=== PATIENT | male | born 1960 | race Hispanic/Latino ===

== ENCOUNTER 2018-12-11 17:01 | Inpatient (IN) | payer MEDICAID ==
[2018-12-11] MEDS ORDERED: PROTONIX IV ONE (18:10)
[2018-12-11] MEDS ORDERED: ZOFRAN IV ONE (18:10)
[2018-12-11] MEDS ORDERED: ATIVAN IV ONE ×2 (18:10→19:37)
[2018-12-11 18:12] LABS: Basophils % (Auto) 0.7 % (0.0-1.8); Hematocrit 41.5 % (35.5-45.6); Hemoglobin 14.2 gm/dl (11.8-15.2); Lymphocytes # (Auto) 0.5 K/mm3 (1.2-5.4); Lymphocytes % (Auto) 6.4 % (13.4-35.0); Mean Corpuscular HGB Conc 34 % (32-34); Mean Corpuscular Volume 85 fl (84-94); Monocytes # (Auto) 0.4 K/mm3 (0.0-0.8); Monocytes % (Auto) 5.7 % (0.0-7.3); Platelet Count 138 K/mm3 (140-440); Red Blood Count 4.91 M/mm3 (3.65-5.03); Red Cell Distribution Width 16.6 % (13.2-15.2)
[2018-12-11 18:25] LABS: INR 0.93 (0.87-1.13)
[2018-12-11 18:27] LABS: Partial Thromboplastin Time 25.1 Sec. (24.2-36.6)
--- NOTE | 2018-12-11 18:38 | Emergency Department Report ---
ED General Adult HPI - General Chief complaint: Nausea/Vomiting/Diarrhea Stated complaint: NAUSEA AND VOMITING Time Seen by Provider: 12/11/18 17:29 Source: EMS Mode of arrival: Stretcher Limitations: No Limitations - History of Present Illness Initial comments: This is a 58-year-old male that has moved here from [place]. He states he has a history of alcohol detox and pancreatitis. He states he's been unable to eat and vomiting lately. He admits to being very shaky after cutting down on his alcohol consumption. He states his last drink was last night. He states he's been sweaty but doesn't feel like he's had a fever or chills per se. He h as been weak and had some difficulty with ambulation. -: Gradual, days(s) Location: head (complains of some generalized headache mild to moderate) Quality: aching Consistency: intermittent Improves with: none Worsens with: none Associated Symptoms: denies other symptoms, nausea/vomiting, weakness - Related Data Previous Rx's Medication Instructions Recorded Last Taken Type Cephalexin [Keflex] 500 mg PO BID #28 capsule 10/09/13 Unknown Rx HYDROcodone/APAP 10-325 [[place] 1 each PO Q6HR PRN #14 tablet 10/09/13 Unknown Rx 10-325 mg TAB] Sulfamethoxazole/Trimethoprim 1 each PO BID #28 tablet 10/09/13 Unknown Rx [Bactrim Ds] traMADol [Ultram] 50 mg PO Q4HR PRN #20 tablet 10/09/13 Unknown Rx Allergies Allergy/AdvReac Type Severity Reaction Status Date / Time No Known Allergies Allergy Unverified 10/09/13 12:01 ED Review of Systems ROS: Stated complaint: NAUSEA AND VOMITING Other details as noted in HPI Constitutional: weakness. denies: chills, fever Eyes: denies: eye pain, eye discharge, vision change ENT: denies: ear pain, throat pain Respiratory: denies: cough, shortness of breath, wheezing Cardiovascular: denies: chest pain, palpitations Endocrine: no symptoms reported Gastrointestinal: abdominal pain (occasional epigastric), nausea, vomiting, diarrhea Genitourinary: denies: urgency, dysuria Musculoskeletal: denies: back pain, joint swelling, arthralgia Skin: denies: rash, lesions Neurological: denies: headache, weakness, paresthesias Psychiatric: denies: anxiety, depression Hematological/Lymphatic: denies: easy bleeding, easy bruising ED Past Medical Hx - Past Medical History Previous Medical History?: Yes Hx Hypertension: Yes Hx CVA: Yes Hx Psychiatric Treatment: Yes (bipolar) Additional medical history: hx head injuries, hx mrsa - Surgical History Past Surgical History?: Yes Additional Surgical History: acl surgery - Social History Smoking Status: Never Smoker Substance Use Type: Alcohol, Marijuana - Medications Home Medications: Home Medications Medication Instructions Recorded Confirmed Last Taken Type Cephalexin [Keflex] 500 mg PO BID #28 capsule 10/09/13 Unknown Rx HYDROcodone/APAP 10-325 [[place] 1 each PO Q6HR PRN #14 tablet 10/09/13 Unknown Rx 10-325 mg TAB] Sulfamethoxazole/Trimethoprim 1 each PO BID #28 tablet 10/09/13 Unknown Rx [Bactrim Ds] traMADol [Ultram] 50 mg PO Q4HR PRN #20 tablet 10/09/13 Unknown Rx ED Physical Exam - General Limitations: No Limitations General appearance: alert, in no apparent distress, other (tremulous) - Head Head exam: Present: atraumatic, normocephalic - Eye Eye exam: Present: normal appearance, PERRL, EOMI. Absent: scleral icterus - ENT ENT exam: Present: mucous membranes moist - Neck Neck exam: Present: normal inspection. Absent: tenderness, meningismus - Respiratory Respiratory exam: Present: normal lung sounds bilaterally. Absent: respiratory distress - Cardiovascular Cardiovascular Exam: Present: normal rhythm, tachycardia. Absent: systolic murmur, diastolic murmur, rubs, gallop - GI/Abdominal GI/Abdominal exam: Present: soft, normal bowel sounds. Absent: distended, tenderness, guarding, rebound, rigid - Rectal Rectal exam: Present: deferred - Extremities Exam Extremities exam: Present: normal inspection - Back Exam Back exam: Present: normal inspection - Neurological Exam Neurological exam: Present: alert, oriented X3, CN II-XII intact. Absent: motor sensory deficit - Psychiatric Psychiatric exam: Present: normal affect, normal mood - Skin Skin exam: Present: warm, dry, intact, normal color. Absent: rash ED Course Vital Signs 12/11/18 12/11/18 17:23 17:40 Temperature 97.9 F Pulse Rate 94 H Respiratory 14 Rate Blood Pressure 138/77 Blood Pressure 138/77 [Left] O2 Sat by Pulse 99 99 Oximetry - Reevaluation(s) Reevaluation #1: Presentation seemed consistent with alcohol withdrawal syndrome and possible pancreatitis. Patient was given a banana bag Protonix and Ativan. 12/11/18 18:37 Reevaluation #2: Patient is a bit altered asking for a flu vaccine. He remains tremulous. Lab neglected running the lipase. That is still pending. He will be admitted for alcohol withdrawal with delirium. 12/11/18 19:36 ED Medical Decision Making - Lab Data Result diagrams: 12/11/18 18:02 12/11/18 18:02 Laboratory Results - last 24 hr 12/11/18 12/11/18 18:02 18:02 WBC 7.6 RBC 4.91 Hgb 14.2 Hct 41.5 MCV 85 MCH 29 MCHC 34 RDW 16.6 H Plt Count 138 L Lymph % (Auto) 6.4 L Walsh % (Auto) 5.7 Eos % (Auto) 0.0 Baso % (Auto) 0.7 Lymph # 0.5 L Walsh # 0.4 Eos # 0.0 Baso # 0.0 Seg Neutrophils % 87.2 H Seg Neutrophils # 6.6 PT 12.2 INR 0.93 APTT 25.1 Laboratory Results - last 24 hr 12/11/18 12/11/18 12/11/18 18:02 18:02 18:02 WBC 7.6 RBC 4.91 Hgb 14.2 Hct 41.5 MCV 85 MCH 29 MCHC 34 RDW 16.6 H Plt Count 138 L Lymph % (Auto) 6.4 L Walsh % (Auto) 5.7 Eos % (Auto) 0.0 Baso % (Auto) 0.7 Lymph # 0.5 L Walsh # 0.4 Eos # 0.0 Baso # 0.0 Seg Neutrophils % 87.2 H Seg Neutrophils # 6.6 PT 12.2 INR 0.93 APTT 25.1 Sodium 136 L Potassium 4.1 Chloride 93.6 L Carbon Dioxide 19 L Anion Gap 28 BUN 12 Creatinine 0.7 L Estimated GFR > 60 BUN/Creatinine Ratio 17 Glucose 93 Calcium 8.8 Phosphorus 2.70 Magnesium 1.90 Troponin T 12/11/18 18:02 WBC RBC Hgb Hct MCV MCH MCHC RDW Plt Count Lymph % (Auto) Walsh % (Auto) Eos % (Auto) Baso % (Auto) Lymph # Walsh # Eos # Baso # Seg Neutrophils % Seg Neutrophils # PT INR APTT Sodium Potassium Chloride Carbon Dioxide Anion Gap BUN Creatinine Estimated GFR BUN/Creatinine Ratio Glucose Calcium Phosphorus Magnesium Troponin T < 0.010 Laboratory Results - last 24 hr 12/11/18 12/11/18 12/11/18 18:02 18:02 18:02 WBC 7.6 RBC 4.91 Hgb 14.2 Hct 41.5 MCV 85 MCH 29 MCHC 34 RDW 16.6 H Plt Count 138 L Lymph % (Auto) 6.4 L Walsh % (Auto) 5.7 Eos % (Auto) 0.0 Baso % (Auto) 0.7 Lymph # 0.5 L Walsh # 0.4 Eos # 0.0 Baso # 0.0 Seg Neutrophils % 87.2 H Seg Neutrophils # 6.6 PT 12.2 INR 0.93 APTT 25.1 Sodium 136 L Potassium 4.1 Chloride 93.6 L Carbon Dioxide 19 L Anion Gap 28 BUN 12 Creatinine 0.7 L Estimated GFR > 60 BUN/Creatinine Ratio 17 Glucose 93 Calcium 8.8 Phosphorus 2.70 Magnesium 1.90 Troponin T 12/11/18 18:02 WBC RBC Hgb Hct MCV MCH MCHC RDW Plt Count Lymph % (Auto) Walsh % (Auto) Eos % (Auto) Baso % (Auto) Lymph # Walsh # Eos # Baso # Seg Neutrophils % Seg Neutrophils # PT INR APTT Sodium Potassium Chloride Carbon Dioxide Anion Gap BUN Creatinine Estimated GFR BUN/Creatinine Ratio Glucose Calcium Phosphorus Magnesium Troponin T < 0.010 Laboratory Results - last 24 hr 12/11/18 12/11/18 12/11/18 18:02 18:02 18:02 WBC 7.6 RBC 4.91 Hgb 14.2 Hct 41.5 MCV 85 MCH 29 MCHC 34 RDW 16.6 H Plt Count 138 L Lymph % (Auto) 6.4 L Walsh % (Auto) 5.7 Eos % (Auto) 0.0 Baso % (Auto) 0.7 Lymph # 0.5 L Walsh # 0.4 Eos # 0.0 Baso # 0.0 Seg Neutrophils % 87.2 H Seg Neutrophils # 6.6 PT 12.2 INR 0.93 APTT 25.1 Sodium 136 L Potassium 4.1 Chloride 93.6 L Carbon Dioxide 19 L Anion Gap 28 BUN 12 Creatinine 0.7 L Estimated GFR > 60 BUN/Creatinine Ratio 17 Glucose 93 Calcium 8.8 Phosphorus 2.70 Magnesium 1.90 Troponin T 12/11/18 18:02 WBC RBC Hgb Hct MCV MCH MCHC RDW Plt Count Lymph % (Auto) Walsh % (Auto) Eos % (Auto) Baso % (Auto) Lymph # Walsh # Eos # Baso # Seg Neutrophils % Seg Neutrophils # PT INR APTT Sodium Potassium Chloride Carbon Dioxide Anion Gap BUN Creatinine Estimated GFR BUN/Creatinine Ratio Glucose Calcium Phosphorus Magnesium Troponin T < 0.010 Laboratory Results - last 24 hr 12/11/18 12/11/18 12/11/18 18:02 18:02 18:02 WBC 7.6 RBC 4.91 Hgb 14.2 Hct 41.5 MCV 85 MCH 29 MCHC 34 RDW 16.6 H Plt Count 138 L Lymph % (Auto) 6.4 L Walsh % (Auto) 5.7 Eos % (Auto) 0.0 Baso % (Auto) 0.7 Lymph # 0.5 L Walsh # 0.4 Eos # 0.0 Baso # 0.0 Seg Neutrophils % 87.2 H Seg Neutrophils # 6.6 PT 12.2 INR 0.93 APTT 25.1 Sodium 136 L Potassium 4.1 Chloride 93.6 L Carbon Dioxide 19 L Anion Gap 28 BUN 12 Creatinine 0.7 L Estimated GFR > 60 BUN/Creatinine Ratio 17 Glucose 93 Calcium 8.8 Phosphorus 2.70 Magnesium 1.90 Troponin T 12/11/18 18:02 WBC RBC Hgb Hct MCV MCH MCHC RDW Plt Count Lymph % (Auto) Walsh % (Auto) Eos % (Auto) Baso % (Auto) Lymph # Walsh # Eos # Baso # Seg Neutrophils % Seg Neutrophils # PT INR APTT Sodium Potassium Chloride Carbon Dioxide Anion Gap BUN Creatinine Estimated GFR BUN/Creatinine Ratio Glucose Calcium Phosphorus Magnesium Troponin T < 0.010 Laboratory Results - last 24 hr 12/11/18 12/11/18 12/11/18 18:02 18:02 18:02 WBC 7.6 RBC 4.91 Hgb 14.2 Hct 41.5 MCV 85 MCH 29 MCHC 34 RDW 16.6 H Plt Count 138 L Lymph % (Auto) 6.4 L Walsh % (Auto) 5.7 Eos % (Auto) 0.0 Baso % (Auto) 0.7 Lymph # 0.5 L Walsh # 0.4 Eos # 0.0 Baso # 0.0 Seg Neutrophils % 87.2 H Seg Neutrophils # 6.6 PT 12.2 INR 0.93 APTT 25.1 Sodium 136 L Potassium 4.1 Chloride 93.6 L Carbon Dioxide 19 L Anion Gap 28 BUN 12 Creatinine 0.7 L Estimated GFR > 60 BUN/Creatinine Ratio 17 Glucose 93 Calcium 8.8 Phosphorus 2.70 Magnesium 1.90 Troponin T 12/11/18 18:02 WBC RBC Hgb Hct MCV MCH MCHC RDW Plt Count Lymph % (Auto) Walsh % (Auto) Eos % (Auto) Baso % (Auto) Lymph # Walsh # Eos # Baso # Seg Neutrophils % Seg Neutrophils # PT INR APTT Sodium Potassium Chloride Carbon Dioxide Anion Gap BUN Creatinine Estimated GFR BUN/Creatinine Ratio Glucose Calcium Phosphorus Magnesium Troponin T < 0.010 Laboratory Results - last 24 hr 12/11/18 12/11/18 12/11/18 18:02 18:02 18:02 WBC 7.6 RBC 4.91 Hgb 14.2 Hct 41.5 MCV 85 MCH 29 MCHC 34 RDW 16.6 H Plt Count 138 L Lymph % (Auto) 6.4 L Walsh % (Auto) 5.7 Eos % (Auto) 0.0 Baso % (Auto) 0.7 Lymph # 0.5 L Walsh # 0.4 Eos # 0.0 Baso # 0.0 Seg Neutrophils % 87.2 H Seg Neutrophils # 6.6 PT 12.2 INR 0.93 APTT 25.1 Sodium 136 L Potassium 4.1 Chloride 93.6 L Carbon Dioxide 19 L Anion Gap 28 BUN 12 Creatinine 0.7 L Estimated GFR > 60 BUN/Creatinine Ratio 17 Glucose 93 Calcium 8.8 Phosphorus 2.70 Magnesium 1.90 Troponin T 12/11/18 18:02 WBC RBC Hgb Hct MCV MCH MCHC RDW Plt Count Lymph % (Auto) Walsh % (Auto) Eos % (Auto) Baso % (Auto) Lymph # Walsh # Eos # Baso # Seg Neutrophils % Seg Neutrophils # PT INR APTT Sodium Potassium Chloride Carbon Dioxide Anion Gap BUN Creatinine Estimated GFR BUN/Creatinine Ratio Glucose Calcium Phosphorus Magnesium Troponin T < 0.010 - Radiology Data Radiology results: report reviewed (chest x-ray and CT head no acute process) Critical care attestation.: If time is entered above; I have spent that time in minutes in the direct care of this critically ill patient, excluding procedure time. ED Disposition Clinical Impression: Alcohol withdrawal Qualifiers: Complication of substance-induced condition: with delirium Qualified Code(s): F10.231 - Alcohol dependence with withdrawal delirium Disposition: 09 OP ADMIT IP TO THIS HOSP Is pt being admited?: Yes Does the pt Need Aspirin: Yes Condition: Stable Referrals: PIERRE KNAPP MD [Primary Care Provider] - 3-5 Days Time of Disposition: 19:36
[2018-12-11 18:51] LABS: BUN/Creatinine Ratio 17; Blood Urea Nitrogen 12 mg/dL (9-20); Calcium 8.8 mg/dL (8.4-10.2); Hemolysis Index 15
--- NOTE | 2018-12-11 18:59 | Cat Scan Report ---
CT head without contrast Coronal history: Gait disturbance FINDINGS: No previous exams available for comparison. There appears be mild cerebral white matter dis ease most consistent with microvascular angiopathy. There is also mild cerebral atrophy. The ventricu lar system is correspondingly appropriate in size and configuration. There is no CT evidence of acute intracranial hemorrhage or significant mass effect. There is mild focal opacification along the infe rior maxillary sinuses. All CT scans at this location are performed using the CT dose reduction for A JOSIAH by means of automated exposure control. IMPRESSION: There is mild microvascular angiopathy and cerebral atrophy without CT evidence of acute intracranial hemorrhage. Signer Name: Ricardo Braxton MD Signed: 12/11/2018 6:55 PM Workstation Name: [id number]
[2018-12-11] MEDS ORDERED: VITAMIN B-1 100 MG, FOLVITE 1 MG, INFUVITE 10 ML in NACL 0.9% 1000 ML 1,000 ML IV ONE (19:00)
--- NOTE | 2018-12-11 19:14 | XRay Report ---
CHEST 1 VIEW INDICATION: hypertension. COMPARISON: None. FINDINGS: Support devices: None. Heart: Normal. Lungs/Pleura: No acute pulmonary or pleural findings. There appears to be an accessory azygos fissure in the medial right upper lobe. IMPRESSION: 1. No acute findings. Signer Name: Armen Hernandez MD Signed: 12/11/2018 7:10 PM Workstation Name: [id number]
[2018-12-11] MEDS ORDERED: BABY ASPIRIN PO ONE (19:36)
[2018-12-11 19:44] LABS: Albumin 4.7 g/dL (3.9-5); Bilirubin,Direct 0.3 mg/dL (0-0.2)
[2018-12-11] MEDS ORDERED: ATIVAN IV PRN (20:17)
[2018-12-11] MEDS ORDERED: DILAUDID IV PRN (20:18)
[2018-12-11] MEDS ORDERED: MORPHINE IV PRN (20:18)
[2018-12-11] MEDS ORDERED: SODIUM CHLORIDE FLUSH SYRINGE 10 ML IV PRN (20:18)
[2018-12-11] MEDS ORDERED: TYLENOL PO PRN (20:18)
[2018-12-11] MEDS ORDERED: REGLAN IV PRN (20:18)
[2018-12-11] MEDS ORDERED: ZOFRAN IV PRN (20:18)
[2018-12-11] MEDS ORDERED: APRESOLINE IV PRN (20:22)
[2018-12-11] MEDS: ATIVAN IV PRN (20:46)
[2018-12-11] MEDS ORDERED: ATIVAN ONE (20:50)
--- NOTE | 2018-12-11 21:17 | Cat Scan Report ---
CT ABDOMEN AND PELVIS WITHOUT IV CONTRAST INDICATION: Pancreatitis, elevated lipase. Nausea. COMPARISON: None available. TECHNIQUE: All CT scans at this facility use dose modulation, automated exposure control, iterative reconstructi on or weight based dosing, when appropriate, to reduce radiation dose to as low as reasonably achieva ble. FINDINGS: Lung Bases: No significant abnormality. Skeletal System: No acute abnormality. ABDOMEN: Liver: Diffuse steatosis. Gallbladder: No significant abnormality. Bile Ducts: No significant abnormality. Pancreas: No significant abnormality. Spleen: No significant abnormality. Adrenals: No significant abnormality. Right Kidney: No significant abnormality. Left Kidney: No significant abnormality. Upper GI tract: There is a very small hiatal hernia. Lymph Nodes: No significant adenopathy. Aorta: No significant abnormality. Additional Findings: No significant abnormality. PELVIS: Colon: Normal aside from diverticulosis. Urinary Bladder and Distal Ureters: No significant abnormality. Appendix: No significant abnormality. Lymph Nodes: No significant adenopathy. Additional Findings: Prostate is enlarged. IMPRESSION: 1. Within the limitations of non contrast technique, no acute process in the abdomen or pelvis. 2. Incidental findings, as above. Signer Name: Armen Hernandez MD Signed: 12/11/2018 9:12 PM Workstation Name: [id number]
[2018-12-11] MEDS ORDERED: BABY ASPIRIN ONE (21:26)
[2018-12-11] MEDS: NACL 0.9% 1000 ML 1,000 ML IV SCH (21:59)
[2018-12-11] MEDS: SODIUM CHLORIDE FLUSH SYRINGE 10 ML IV SCH (22:00)
[2018-12-11] MEDS ORDERED: CATAPRES-TTS PATCH TD SCH (22:00)
[2018-12-11] MEDS: LOPRESSOR PO SCH (22:00)
[2018-12-11] MEDS ORDERED: NACL 0.9% 1000 ML 1,000 ML ONE (22:02)
--- NOTE | 2018-12-11 22:41 | History and Physical Report ---
<JOHN CAAL - Last Filed: 12/11/18 22:42> History of Present Illness Date of examination: 12/11/18 Date of admission: 12/11/18 20:18 Chief complaint: Nausea and vomiting History of present illness: 58-year-old male with history of pancreatitis, uncontrolled hypertension and alcohol abuse who presents to [facility] ED with complaints of nausea and vomiting 2 days and diarrhea 2. Patient states that he has nausea and vomiting over the past 2 days after cutting down on his alcohol consumption. He usually drinks 0.5-1 pint 4-6 days a week. He also complains of diarrhea 2 which has since resolved. He admits to feeling shaky, having the "sweats", and generalized weakness for the past 2 days. Patient states he recently relocated from [place] to [place]. He admits to have been gone through alcohol detox program in the past. Denies: fever, headache, hemoptysis, hematemesis, hematochezia, hematuria, head injury/trauma, or recent sick contact Past History Past Medical History: hypertension, stroke, other (bipolar, head injuries, history of MRSA, right axilla abscess 09/2013) Past Surgical History: Other (ACL surgery (1999)) Social history: Lives alone, alcohol abuse (drinks a half pint height of 5, 4-6 days a week; last drink was yesterday afternoon), other (marijuana use) Family history: no significant family history Medications and Allergies Allergies Allergy/AdvReac Type Severity Reaction Status Date / Time No Known Allergies Allergy Unverified 10/09/13 12:01 Home Medications Medication Instructions Recorded Confirmed Last Taken Type Cephalexin [Keflex] 500 mg PO BID #28 capsule 10/09/13 Unknown Rx HYDROcodone/APAP 10-325 [Fouke 1 each PO Q6HR PRN #14 tablet 10/09/13 Unknown Rx 10-325 mg TAB] Sulfamethoxazole/Trimethoprim 1 each PO BID #28 tablet 10/09/13 Unknown Rx [Bactrim Ds] traMADol [Ultram] 50 mg PO Q4HR PRN #20 tablet 10/09/13 Unknown Rx Active Meds: Active Medications Acetaminophen (Tylenol) 650 mg PO Q4H PRN PRN Reason: Pain MILD(1-3)/Fever >100.5/ROSAS Enoxaparin Sodium (Lovenox) 40 mg SUB-Q QDAY SLY Hydralazine HCl (Apresoline) 10 mg IV Q4HR PRN PRN Reason: Blood Pressure Hydromorphone HCl (Dilaudid) 0.5 mg IV Q3H PRN PRN Reason: Pain , Severe (7-10) Thiamine HCl 100 mg/ Folic Acid 1 mg/ Multivitamins/Minerals 10 ml/ Sodium Chloride 1,011.2 mls @ 250 mls/hr IV ONCE ONE Stop: 12/11/18 23:02 Last Admin: 12/11/18 19:00 Dose: 250 mls/hr Documented by: Sodium Chloride (Nacl 0.9% 1000 Ml) 1,000 mls @ 100 mls/hr IV DIRECT SLY Last Admin: 12/11/18 21:59 Dose: 100 mls/hr Documented by: Folic Acid 1 mg/ Sodium (Chloride) 50.2 mls @ 200.8 mls/hr IV QDAY SLY Thiamine HCl 100 mg/ Sodium (Chloride) 51 mls @ 100 mls/hr IV QDAY [facility] Lorazepam (Ativan) 2 mg IV Q1H PRN PRN Reason: Tahira 8-15 Last Admin: 12/11/18 20:46 Dose: 2 mg Documented by: Lorazepam (Ativan) 4 mg IV Q1H PRN PRN Reason: Tahira 16-25 Metoclopramide HCl (Reglan) 10 mg IV Q6H PRN PRN Reason: Nausea And Vomiting Metoprolol Tartrate (Lopressor) 25 mg PO BID [facility] Morphine Sulfate (Morphine) 2 mg IV Q4H PRN PRN Reason: Pain, Moderate (4-6) Ondansetron HCl (Zofran) 4 mg IV Q6H PRN PRN Reason: Nausea And Vomiting Sodium Chloride (Sodium Chloride Flush Syringe 10 Ml) 10 ml IV BID [facility] Sodium Chloride (Sodium Chloride Flush Syringe 10 Ml) 10 ml IV PRN PRN PRN Reason: LINE FLUSH Review of Systems All systems: negative Cardiovascular: high blood pressure Gastrointestinal: nausea, vomiting, diarrhea (x3) Musculoskeletal: gait dysfunction (unsteady gait, frequent falls) Integumentary: other Neurological: headaches (mild intermittent generalized) Exam - Physical Exam Narrative exam: Physical exam General appearance: No acute distress, alert and oriented 3, fidgety, adult male - EENT Eyes: Present: PERRL, EOM ENT: hearing intact, normal dentition - Neck Neck: Present: supple, normal ROM - Respiratory Respiratory effort: Non-labored Respiratory: CTA bilaterally - Cardiovascular Heart rate: 94 (bpm) Rhythm: SR Heart Sounds: Present: S1 & S2. Absent: rub, click - Extremities Extremities: no ischemia, pulses intact, - Peripheral Assessment Peripheral Pulses: within normal limits - Abdominal General gastrointestinal: Rounded, soft, non-tender, normal bowel sounds - Integumentary Integumentary: Present: warm, mild diaphoresis noted - Musculoskeletal Musculoskeletal: Able to move all extremities -Neurological Neurological: CN II-XII grossly intact - Psychiatric Psychiatric: cooperative - Constitutional Vitals: Temp Pulse Resp BP Pulse Ox 97.9 F 94 H 14 149/87 95 12/11/18 17:23 12/11/18 19:30 12/11/18 18:46 12/11/18 19:30 12/11/18 19:30 Results - Labs CBC & Chem 7: 12/11/18 18:02 12/11/18 18:02 Labs: Laboratory Last Values WBC 7.6 K/mm3 (4.5-11.0) 12/11/18 18:02 RBC 4.91 M/mm3 (3.65-5.03) 12/11/18 18:02 Hgb 14.2 gm/dl (11.8-15.2) 12/11/18 18:02 Hct 41.5 % (35.5-45.6) 12/11/18 18:02 MCV 85 fl (84-94) 12/11/18 18:02 MCH 29 pg (28-32) 12/11/18 18:02 MCHC 34 % (32-34) 12/11/18 18:02 RDW 16.6 % (13.2-15.2) H 12/11/18 18:02 Plt Count 138 K/mm3 (140-440) L 12/11/18 18:02 Lymph % (Auto) 6.4 % (13.4-35.0) L 12/11/18 18:02 [place]inn % (Auto) 5.7 % (0.0-7.3) 12/11/18 18:02 Eos % (Auto) 0.0 % (0.0-4.3) 12/11/18 18:02 Baso % (Auto) 0.7 % (0.0-1.8) 12/11/18 18:02 Lymph # 0.5 K/mm3 (1.2-5.4) L 12/11/18 18:02 [place]inn # 0.4 K/mm3 (0.0-0.8) 12/11/18 18:02 Eos # 0.0 K/mm3 (0.0-0.4) 12/11/18 18:02 Baso # 0.0 K/mm3 (0.0-0.1) 12/11/18 18:02 Seg Neutrophils % 87.2 % (40.0-70.0) H 12/11/18 18:02 Seg Neutrophils # 6.6 K/mm3 (1.8-7.7) 12/11/18 18:02 PT 12.2 Sec. (12.2-14.9) 12/11/18 18:02 INR 0.93 (0.87-1.13) 12/11/18 18:02 APTT 25.1 Sec. (24.2-36.6) 12/11/18 18:02 Sodium 136 mmol/L (137-145) L 12/11/18 18:02 Potassium 4.1 mmol/L (3.6-5.0) 12/11/18 18:02 Chloride 93.6 mmol/L (98-107) L 12/11/18 18:02 Carbon Dioxide 19 mmol/L (22-30) L 12/11/18 18:02 28 mmol/L 12/11/18 18:02 BUN 12 mg/dL (9-20) 12/11/18 18:02 0.7 mg/dL (0.8-1.5) L 12/11/18 18:02 Estimated GFR > 60 ml/min 12/11/18 18:02 17 % 12/11/18 18:02 Glucose 93 mg/dL (75-100) 12/11/18 18:02 Calcium 8.8 mg/dL (8.4-10.2) 12/11/18 18:02 Phosphorus 2.70 mg/dL (2.5-4.5) 12/11/18 18:02 Magnesium 1.90 mg/dL (1.7-2.3) 12/11/18 18:02 1.20 mg/dL (0.1-1.2) 12/11/18 18:02 0.3 mg/dL (0-0.2) H 12/11/18 18:02 0.9 mg/dL 12/11/18 18:02 AST 37 units/L (5-40) 12/11/18 18:02 ALT 28 units/L (7-56) 12/11/18 18:02 66 units/L (35-129) 12/11/18 18:02 < 0.010 ng/mL (0.00-0.029) 12/11/18 18:02 7.5 g/dL (6.3-8.2) 12/11/18 18:02 4.7 g/dL (3.9-5) 12/11/18 18:02 1.7 % 12/11/18 18:02 111 units/L (13-60) H 12/11/18 18:02 - Imaging and Cardiology Imaging and Cardiology: CT Abdomen Pelvis: FINDINGS: Lung Bases: No significant abnormality. Skeletal System: No acute abnormality. ABDOMEN: Liver: Diffuse steatosis. Gallbladder: No significant abnormality. Bile Ducts: No significant abnormality. Pancreas: No significant abnormality. Spleen: No significant abnormality. Adrenals: No significant abnormality. Right Kidney: No significant abnormality. Left Kidney: No significant abnormality. Upper GI tract: There is a very small hiatal hernia. Lymph Nodes: No significant adenopathy. Aorta: No significant abnormality. Additional Findings: No significant abnormality. PELVIS: Colon: Normal aside from diverticulosis. Urinary Bladder and Distal Ureters: No significant abnormality. Appendix: No significant abnormality. Lymph Nodes: No significant adenopathy. Additional Findings: Prostate is enlarged. IMPRESSION: 1. Within the limitations of non contrast technique, no acute process in the abdomen or pelvis. 2. Incidental findings, as above. CT Head: FINDINGS: No previous exams available for comparison. There appears be mild cerebral white matter disease most consistent with microvascular angiopathy. There is also mild cerebral atrophy. The ventricular system is correspondingly appropriate in size and configuration. There is no CT evidence of acute intracranial hemorrhage or significant mass effect. There is mild focal opacification along the inferior maxillary sinuses. All CT scans at this location are performed using the CT dose reduction for [place]mbel by means of automated exposure control. IMPRESSION: There is mild microvascular angiopathy and cerebral atrophy without CT evidence of acute intracranial hemorrhage. CXR: FINDINGS: Support devices: None. Heart: Normal. Lungs/Pleura: No acute pulmonary or pleural findings. There appears to be an accessory azygos fissure in the medial right upper lobe. IMPRESSION: 1. No acute findings. Assessment and Plan Assessment and plan: 58-year-old male with history of pancreatitis, uncontrolled hypertension and alcohol abuse who presents to [facility] ED with complaints of nausea and vomiting 2 days and diarrhea 2. Alcohol abuse -Drinks 0.5-1 pint , 4-6 days a week -Last drink was yesterday afternoon -Initiate CIWA protocol -Neuro checks -Fall precaution -Start folic acid and thiamine replacement Gastritis -Likely secondary to alcohol abuse -Complain of nausea, vomiting 2 days, and diarrhea x2 -Continue supportive care Hypertension -Uncontrolled -Continue to monitor BP -On any home antihypertensive meds -Start on metoprolol -IV hydralazine when necessary Elevated lipase -111 -Denies abdominal pain -CT abdomen pelvis negative -Continue monitor History of unsteady gait and falls -Likely Secondary to alcohol intoxication -PT/OT eval DVT PPX -on Lovenox Advance Directives: No VTE prophylaxis?: Chemical Plan of care discussed with patient/family: Yes <JEET DEL VALLE - Last Filed: 12/12/18 05:51> History of Present Illness Date of admission: 12/11/18 20:18 Medications and Allergies Active Meds: Active Medications Acetaminophen (Tylenol) 650 mg PO Q4H PRN PRN Reason: Pain MILD(1-3)/Fever >100.5/ROSAS Enoxaparin Sodium (Lovenox) 40 mg SUB-Q QDAY SLY Hydralazine HCl (Apresoline) 10 mg IV Q4HR PRN PRN Reason: Blood Pressure Hydromorphone HCl (Dilaudid) 0.5 mg IV Q3H PRN PRN Reason: Pain , Severe (7-10) Sodium Chloride (Nacl 0.9% 1000 Ml) 1,000 mls @ 100 mls/hr IV DIRECT SLY Last Admin: 12/11/18 21:59 Dose: 100 mls/hr Documented by: Folic Acid 1 mg/ Sodium (Chloride) 50.2 mls @ 200.8 mls/hr IV QDAY [facility] Thiamine HCl 100 mg/ Sodium (Chloride) 51 mls @ 100 mls/hr IV QDAY [facility] Lorazepam (Ativan) 2 mg IV Q1H PRN PRN Reason: CIWA-Ar 8-15 Last Admin: 12/12/18 00:20 Dose: 2 mg Documented by: Lorazepam (Ativan) 4 mg IV Q1H PRN PRN Reason: NICHOLE-Ar 16-25 Metoclopramide HCl (Reglan) 10 mg IV Q6H PRN PRN Reason: Nausea And Vomiting Metoprolol Tartrate (Lopressor) 25 mg PO BID [facility] Last Admin: 12/11/18 22:00 Dose: Not Given Documented by: Morphine Sulfate (Morphine) 2 mg IV Q4H PRN PRN Reason: Pain, Moderate (4-6) Ondansetron HCl (Zofran) 4 mg IV Q6H PRN PRN Reason: Nausea And Vomiting Sodium Chloride (Sodium Chloride Flush Syringe 10 Ml) 10 ml IV BID [facility] Last Admin: 12/11/18 22:00 Dose: 10 ml Documented by: Sodium Chloride (Sodium Chloride Flush Syringe 10 Ml) 10 ml IV PRN PRN PRN Reason: LINE FLUSH Exam - Constitutional Vitals: Temp Pulse Resp BP Pulse Ox 98.2 F 75 18 106/48 96 12/12/18 02:55 12/12/18 02:55 12/12/18 02:55 12/12/18 02:55 12/12/18 02:55 Results - Labs CBC & Chem 7: 12/12/18 04:55 12/11/18 18:02 Labs: Laboratory Last Values WBC 4.1 K/mm3 (4.5-11.0) L 12/12/18 04:55 RBC 4.14 M/mm3 (3.65-5.03) 12/12/18 04:55 Hgb 12.0 gm/dl (11.8-15.2) 12/12/18 04:55 Hct 35.3 % (35.5-45.6) L D 12/12/18 04:55 MCV 85 fl (84-94) 12/12/18 04:55 MCH 29 pg (28-32) 12/12/18 04:55 MCHC 34 % (32-34) 12/12/18 04:55 RDW 16.8 % (13.2-15.2) H 12/12/18 04:55 Plt Count 116 K/mm3 (140-440) L 12/12/18 04:55 Lymph % (Auto) 25.2 % (13.4-35.0) 12/12/18 04:55 Linn % (Auto) 12.3 % (0.0-7.3) H 12/12/18 04:55 Eos % (Auto) 1.3 % (0.0-4.3) 12/12/18 04:55 Baso % (Auto) 1.1 % (0.0-1.8) 12/12/18 04:55 Lymph # 1.0 K/mm3 (1.2-5.4) L 12/12/18 04:55 Linn # 0.5 K/mm3 (0.0-0.8) 12/12/18 04:55 Eos # 0.1 K/mm3 (0.0-0.4) 12/12/18 04:55 Baso # 0.0 K/mm3 (0.0-0.1) 12/12/18 04:55 Seg Neutrophils % 60.1 % (40.0-70.0) 12/12/18 04:55 Seg Neutrophils # 2.5 K/mm3 (1.8-7.7) 12/12/18 04:55 PT 12.2 Sec. (12.2-14.9) 12/11/18 18:02 INR 0.93 (0.87-1.13) 12/11/18 18:02 APTT 25.1 Sec. (24.2-36.6) 12/11/18 18:02 Sodium 136 mmol/L (137-145) L 12/11/18 18:02 Potassium 4.1 mmol/L (3.6-5.0) 12/11/18 18:02 Chloride 93.6 mmol/L (98-107) L 12/11/18 18:02 Carbon Dioxide 19 mmol/L (22-30) L 12/11/18 18:02 28 mmol/L 12/11/18 18:02 BUN 12 mg/dL (9-20) 12/11/18 18:02 0.7 mg/dL (0.8-1.5) L 12/11/18 18:02 Estimated GFR > 60 ml/min 12/11/18 18:02 17 % 12/11/18 18:02 Glucose 93 mg/dL (75-100) 12/11/18 18:02 Calcium 8.8 mg/dL (8.4-10.2) 12/11/18 18:02 Phosphorus 2.70 mg/dL (2.5-4.5) 12/11/18 18:02 Magnesium 1.90 mg/dL (1.7-2.3) 12/11/18 18:02 1.20 mg/dL (0.1-1.2) 12/11/18 18:02 0.3 mg/dL (0-0.2) H 12/11/18 18:02 0.9 mg/dL 12/11/18 18:02 AST 37 units/L (5-40) 12/11/18 18:02 ALT 28 units/L (7-56) 12/11/18 18:02 66 units/L (35-129) 12/11/18 18:02 < 0.010 ng/mL (0.00-0.029) 12/11/18 18:02 7.5 g/dL (6.3-8.2) 12/11/18 18:02 4.7 g/dL (3.9-5) 12/11/18 18:02 1.7 % 12/11/18 18:02 111 units/L (13-60) H 12/11/18 18:02 (Yellow) 12/11/18 17:49 Slightly-cloudy (Clear) 12/11/18 17:49 6.0 (5.0-7.0) 12/11/18 17:49 Ur Specific [place] 1.021 (1.003-1.030) 12/11/18 17:49 30 mg/dl mg/dL (Negative) 12/11/18 17:49 Neg mg/dL (Negative) 12/11/18 17:49 80 mg/dL (Negative) 12/11/18 17:49 Neg (Negative) 12/11/18 17:49 Neg (Negative) 12/11/18 17:49 Neg (Negative) 12/11/18 17:49 2.0 mg/dL (<2.0) 12/11/18 17:49 Ur Leukocyte Esterase Neg (Negative) 12/11/18 17:49 1.0 /HPF (0.0-6.0) 12/11/18 17:49 3.0 /HPF (0.0-6.0) 12/11/18 17:49 Hyaline Casts 2 /LPF 12/11/18 17:49 Few /HPF 12/11/18 17:49 Presumptive negative 12/11/18 18:12 Presumptive negative 12/11/18 18:12 Ur Barbiturates Screen Presumptive negative 12/11/18 18:12 Ur Phencyclidine Scrn Presumptive negative 12/11/18 18:12 Ur Amphetamines Screen Presumptive negative 12/11/18 18:12 U Benzodiazepines Scrn Presumptive negative 12/11/18 18:12 Presumptive negative 12/11/18 18:12 U Marijuana (THC) Screen Presumptive negative 12/11/18 18:12 Disclamer 12/11/18 18:12 Assessment and Plan Assessment and plan: 58 with a history of alcohol abuse, hypertension comes to the ER for alcohol withdrawal, noncompliant with medications. He's been cutting down on alcohol intake, last drink was last night. Agree with plan as stated above, except d/c lovenox, patient thrombocytopenic. D/ clonide, start lopressor
[2018-12-12] LABS: Bilirubin,Urine NEG (Negative); Blood,Urine NEG (Negative); Color,Urine Amber (Yellow); Hyaline Casts,Urine 2 /LPF; Mucus,Urine FEW /HPF
[2018-12-12 00:04] LABS: Amphetamine Screen,Urine PRESUMPTIVE NEGATIVE; Benzodiazepines Screen,Urine PRESUMPTIVE NEGATIVE; Cannabinoid Screen,Urine PRESUMPTIVE NEGATIVE; Cocaine Screen,Urine PRESUMPTIVE NEGATIVE; Methadone Screen,Urine PRESUMPTIVE NEGATIVE; Opiate Screen,Urine PRESUMPTIVE NEGATIVE
[2018-12-12] MEDS ORDERED: ATIVAN ONE (00:09)
[2018-12-12] MEDS: ATIVAN IV PRN ×2 (00:20→11:14)
[2018-12-12 05:26] LABS: Basophils % (Auto) 1.1 % (0.0-1.8); Eosinophils # (Auto) 0.1 K/mm3 (0.0-0.4); Eosinophils % (Auto) 1.3 % (0.0-4.3); Hematocrit 35.3 % (35.5-45.6); Lymphocytes % (Auto) 25.2 % (13.4-35.0); Mean Corpuscular HGB Conc 34 % (32-34); Mean Corpuscular Volume 85 fl (84-94); Monocytes # (Auto) 0.5 K/mm3 (0.0-0.8); Monocytes % (Auto) 12.3 % (0.0-7.3); Platelet Count 116 K/mm3 (140-440); Red Blood Count 4.14 M/mm3 (3.65-5.03); Red Cell Distribution Width 16.8 % (13.2-15.2)
[2018-12-12 05:45] LABS: BUN/Creatinine Ratio 17; Blood Urea Nitrogen 12 mg/dL (9-20); Calcium 8.1 mg/dL (8.4-10.2); Hemolysis Index 9
[2018-12-12] MEDS ORDERED: LOVENOX SUB-Q SCH (10:00)
[2018-12-12] MEDS ORDERED: VITAMIN B-1 100 MG in NACL 0.9% 50 ML IV SCH (10:00)
[2018-12-12] MEDS ORDERED: FOLVITE 1 MG in NACL 0.9% 50 ML IV SCH (10:00)
[2018-12-12] MEDS: NACL 0.9% 1000 ML 1,000 ML IV SCH (10:47)
[2018-12-12] MEDS: SODIUM CHLORIDE FLUSH SYRINGE 10 ML IV SCH (10:48)
[2018-12-12] MEDS: LOPRESSOR PO SCH (11:12)
--- NOTE | 2018-12-12 11:15 | Discharge Summary ---
Providers - Providers Date of Admission: 12/11/18 20:18 Attending physician: YANELI PETERSON MD 12/11/18 22:58 Occupational Therapy Evaluate and Treat [CONS] Routine Comment: Reason For Exam: unsteady gait, history of falls Physical Therapy Evaluation and Treat [CONS] Routine Comment: Reason For Exam: steady gait, history of falls [facility] care [facility] Hospitalization Condition: Stable Hospital course: 58-year-old male with history of pancreatitis, uncontrolled hypertension and alcohol abuse who presents to [facility] with complaints of nausea and vomiting 2 days and diarrhea 2. Patient states that he has nausea and vomiting over the past 2 days after cutting down on his alcohol consumption. He usually drinks 0.5-1 pint 4-6 days a week. He also complains of diarrhea 2 which has since resolved. He admits to feeling shaky, having the "sweats", and generalized weakness for the past 2 days. Patient states he recently relocated from [place] to [place]. He admits to have been gone through alcohol detox program in the past. 58-year-old male with history of pancreatitis, uncontrolled hyperte nsion and alcohol abuse who presents to [facility] with complaints of nausea and vomiting 2 days and diarrhea 2. * Patient clinically improved tolerance in diet recommend the patient can be discharged and to follow with outpatient rehabilitation program. * Extensive counseling recommended that the patient quit alcohol use over 15 minutes spent on counseling Alcohol abuse -Drinks 0.5-1 pint , 4-6 days a week -Last drink was yesterday afternoon -Initiate [facility] protocol -Neuro checks -Fall precaution -Start folic acid and thiamine replacement Gastritis -Likely secondary to alcohol abuse -Complain of nausea, vomiting 2 days, and diarrhea x2 -Continue supportive care Hypertension -Uncontrolled -Continue to monitor BP -On any home antihypertensive meds -Start on metoprolol -IV hydralazine when necessary Elevated lipase -111 -Denies abdominal pain -CT abdomen pelvis negative -Continue monitor History of unsteady gait and falls -Likely Secondary to alcohol intoxication -PT/OT eval Disposition: DC-01 TO HOME OR SELFCARE Exam - Physical Exam Narrative exam: VITAL SIGNS: Reviewed. GENERAL: The patient appears normally developed, Vital signs as documented. HEAD: No signs of head trauma. EYES: Pupils are equal. Extraocular motions intact. EARS: Hearing grossly intact. MOUTH: Oropharynx is normal. NECK: No adenopathy, no JVD. CHEST: Chest with clear breath sounds bilaterally. No wheezes, rales, or rhonchi. CARDIAC: Regular rate and rhythm. S1 and S2, without murmurs, gallops, or rubs. VASCULAR: No Edema. Peripheral pulses normal and equal in all extremities. ABDOMEN: Soft, non tender and non distended. No rebound or guarding, and no masses palpated. Bowel Sounds normal. MUSCULOSKELETAL: Good range of motion of all major joints. Extremities without clubbing, cyanosis or edema. NEUROLOGIC EXAM: Alert and oriented x 3 No focal sensory or strength d eficits. Speech normal. Follows commands. PSYCHIATRIC: Mood normal. SKIN: detial exam as documented in skin assessment - Constitutional Vitals: Temp Pulse Resp BP Pulse Ox 98.2 F 75 18 126/72 96 12/12/18 02:55 12/12/18 11:12 12/12/18 02:55 12/12/18 11:12 12/12/18 02:55 Plan Activity: advance as tolerated, fall precautions Diet: low fat Special Instructions: record daily BP diary, physical therapy, other (needs outpatient DRUG REHAB) Follow up with: PIERRE KNAPP MD [Primary Care Provider] - 3-5 Days Prescriptions: Folic Acid [Folvite] 1 mg PO QDAY #30 tablet chlordiazePOXIDE [Librium] 25 mg PO Q8H #20 capsule Propranolol HCl 20 mg PO DAILY #30 tablet Thiamine [Vitamin B-1] 100 mg PO QDAY #30 tablet
[2018-12-12] MEDS ORDERED: K-DUR PO ONE ×3 (12:00→18:00)
[2018-12-12 12:17] VITALS: BP 120/72
== END 2018-12-12 20:07 | disposition home or self-care (01) | DRG 392 ==
LOC: ED 17:01 → 3A 20:18
PROVIDERS: ADMIT Internal Medicine; ATTEND Internal Medicine
DX: K29.20 Alcoholic gastritis without bleeding (principal); I10 Essential (primary) hypertension; Z60.2 Problems related to living alone; F17.210 Nicotine dependence, cigarettes, uncomplicated; F12.90 Cannabis use, unspecified, uncomplicated; F10.231 Alcohol dependence with withdrawal delirium; Y90.9 Presence of alcohol in blood, level not specified; Z86.73 Personal history of transient ischemic attack (TIA), and cerebral infarction without residual deficits
CPT/HCPCS: 36415; 70450; 71045; 74176; 80048; 80076; 80307; 81001; 83690; 83735; 84100; 84484; 85025; 85610; 85730; 93005; 93010; G0378; C9113; J2060; J2405; J3411; J7030

== ENCOUNTER 2018-12-21 04:55 | Emergency (ER) | payer MEDICAID ==
[2018-12-21] MEDS ORDERED: THIAMINE 100 MG, FOLIC ACID 1 MG, MULTIPLE VITAMIN INJ, ADULT 10 ML in SODIUM CHLORIDE ... IV ONE (05:00)
--- NOTE | 2018-12-21 06:09 | Cat Scan Report ---
CT head/brain wo con INDICATION: fall with head injury. TECHNIQUE: Routine CT head without contrast. All CT scans at this location are performed using CT dose reduction for ALARA by means of automated exposure control. COMPARISON: Head CT on 12/11/2018. FINDINGS: BRAIN / INTRACRANIAL CONTENTS: No acute hemorrhage, brain edema, mass effect, or hydrocephalus. Elma l tan-white differentiation. No chronic infarct. Age-commensurate ventricular and cisternal/sulcal p rominence. CALVARIUM/SKULL BASE/CRANIOCERVICAL JUNCTION: No evidence of fracture. ORBITS: No significant abnormality of visualized orbits. SINUSES / MASTOIDS: No significant abnormality of visualized sinuses and mastoid air cells. ADDITIONAL FINDINGS: Small scalp hematoma seen in the left frontal scalp. IMPRESSION: 1. No acute post-traumatic intracranial abnormality. Signer Name: Franko Ellison MD Signed: 12/21/2018 6:05 AM Workstation Name: [id number]
--- NOTE | 2018-12-21 06:11 | Cat Scan Report ---
CT CERVICAL SPINE WITHOUT CONTRAST INDICATION: fall with head injury. Neck pain. TECHNIQUE: Axial CT images of the spine were obtained. Sagittal and coronal reformatted images were produced. Al l CT scans at this location are performed using CT dose reduction for ALARA by means of automated exp osure control. COMPARISON: None available. FINDINGS: ACUTE FRACTURE(S) OR SUBLUXATION: None. SPINAL DEGENERATIVE CHANGES: There are findings of DISH with large anterior osteophytes extending fro m C3 through C7, some of which are bridging. There is no significant spinal canal stenosis or neural foraminal narrowing. PARASPINAL SOFT TISSUES: No soft tissue swelling or other acute abnormalities. ADDITIONAL FINDINGS: No significant additional findings. IMPRESSION: 1. No acute fracture or subluxation in the spine in neutral position. Signer Name: Franko Ellison MD Signed: 12/21/2018 6:07 AM Workstation Name: [id number]
[2018-12-21 06:13] LABS: Hematocrit 41.3 % (35.5-45.6); Hemoglobin 13.6 gm/dl (11.8-15.2); Mean Corpuscular HGB Conc 33 % (32-34); Mean Corpuscular Volume 87 fl (84-94); Platelet Count 136 K/mm3 (140-440); Red Blood Count 4.76 M/mm3 (3.65-5.03)
[2018-12-21 06:26] LABS: Albumin 4.5 g/dL (3.9-5); BUN/Creatinine Ratio 13; Blood Urea Nitrogen 12 mg/dL (9-20); Calcium 9.5 mg/dL (8.4-10.2); Hemolysis Index 120
[2018-12-21 06:33] LABS: Basophils % (Auto) 0.6 % (0.0-1.8); Eosinophils % (Auto) 0.2 % (0.0-4.3); Lymphocytes # (Auto) 0.4 K/mm3 (1.2-5.4); Lymphocytes % (Auto) 6.3 % (13.4-35.0); Monocytes # (Auto) 0.6 K/mm3 (0.0-0.8); Monocytes % (Auto) 9.3 % (0.0-7.3)
[2018-12-21] MEDS ORDERED: ACETAMINOPHEN 325 MG TAB PO ONE (06:43)
[2018-12-21] MEDS ORDERED: LORazepam 1 MG TAB PO ONE (06:43)
[2018-12-21] MEDS ORDERED: TETANUS,DIPH,PERTUSS(ACELL) VACCINE 0.5 ML SYRINGE IM ONE (06:43)
[2018-12-21 06:44] LABS: Alanine Aminotransferase 36 units/L (7-56)
--- NOTE | 2018-12-21 07:01 | XRay Report ---
XR hand 2V LT INDICATION / CLINICAL INFORMATION: Left hand pain after trauma. COMPARISON: None available. FINDINGS: BONES/JOINT(S): No acute fracture or subluxation. No significant degenerative changes. SOFT TISSUES: Soft tissue swelling in the order aspect of the hand. No radiopaque foreign body or sof t tissue gas. ADDITIONAL FINDINGS: None. Signer Name: Franko Ellison MD Signed: 12/21/2018 6:56 AM Workstation Name: [id number]
[2018-12-21] MEDS ORDERED: PANTOPRAZOLE 40 MG TAB PO ONE (07:18)
--- NOTE | 2018-12-21 07:44 | Emergency Department Report ---
ED General Adult HPI - General Chief complaint: Fall Stated complaint: FALL Time Seen by Provider: 12/21/18 06:15 Source: patient Mode of arrival: Ambulatory Limitations: No Limitations - History of Present Illness Initial comments: This is a 58 year old male that was recently arrested. Patient states that he was placed on a detox protocol for alcohol in the detention after he was arrested for public intoxication. The patient was given a prescription for Ativan and he states. Last night he was walking in a parking lot and tripped injuring his head and hands. He did not lose consciousness. He had a negative CT of his head and cervical spine prior to my arrival. He states that he thinks he needs more Ativan and alcohol detox. States he hasn't drank for 3 days. Other than discomfort related to his contusions to include his forehead and bilateral hands he has no specific complaints. He is not suicidal homicidal or hallucinating. He is anxious and does feel like he is withdrawing from alcohol. -: Gradual, days(s) Location: head, upper extremity Consistency: intermittent Improves with: none Worsens with: none Associated Symptoms: denies other symptoms (except as above described) - Related Data Previous Rx's Medication Instructions Recorded Last Taken Type HYDROcodone/APAP 10-325 [[place] 1 each PO Q6HR PRN #14 tablet 10/09/13 Unknown Rx 10-325 mg TAB] Folic Acid [Folvite] 1 mg PO QDAY #30 tablet 12/12/18 Unknown Rx Propranolol HCl 20 mg PO DAILY #30 tablet 12/12/18 Unknown Rx Thiamine [Vitamin B-1] 100 mg PO QDAY #30 tablet 12/12/18 Unknown Rx chlordiazePOXIDE [Librium] 25 mg PO Q8H #20 capsule 12/12/18 Unknown Rx Allergies Allergy/AdvReac Type Severity Reaction Status Date / Time No Known Allergies Allergy Unverified 10/09/13 12:01 ED Review of Systems ROS: Stated complaint: FALL Other details as noted in HPI Constitutional: denies: chills, fever Eyes: denies: eye pain, eye discharge, vision change ENT: denies: ear pain, throat pain Respiratory: denies: cough, shortness of breath, wheezing Cardiovascular: denies: chest pain, palpitations Endocrine: no symptoms reported Gastrointestinal: denies: abdominal pain, nausea, diarrhea Genitourinary: denies: urgency, dysuria Musculoskeletal: as per HPI. denies: back pain, joint swelling, arthralgia Skin: denies: rash, lesions Neurological: denies: headache, weakness, paresthesias Psychiatric: as per HPI, anxiety. denies: depression Hematological/Lymphatic: denies: easy bleeding, easy bruising ED Past Medical Hx - Past Medical History Hx Hypertension: Yes Hx CVA: Yes Hx Congestive Heart Failure: No Hx Diabetes: No Hx Psychiatric Treatment: Yes (bipolar) Hx Asthma: No Hx COPD: No Hx HIV: No Additional medical history: hx head injuries, hx mrsa - Surgical History Additional Surgical History: acl surgery - Social History Smoking Status: Unknown if ever smoked - Medications Home Medications: Home Medications Medication Instructions Recorded Confirmed Last Taken Type HYDROcodone/APAP 10-325 [[place] 1 each PO Q6HR PRN #14 tablet 10/09/13 Unknown Rx 10-325 mg TAB] Folic Acid [Folvite] 1 mg PO QDAY #30 tablet 12/12/18 Unknown Rx Propranolol HCl 20 mg PO DAILY #30 tablet 12/12/18 Unknown Rx Thiamine [Vitamin B-1] 100 mg PO QDAY #30 tablet 12/12/18 Unknown Rx chlordiazePOXIDE [Librium] 25 mg PO Q8H #20 capsule 12/12/18 Unknown Rx ED Physical Exam - General Limitations: No Limitations General appearance: alert, in no apparent distress - Head Head exam: Present: normocephalic, other (forehead abrasion) - Eye Eye exam: Present: normal appearance, PERRL, EOMI. Absent: scleral icterus - ENT ENT exam: Present: mucous membranes moist - Neck Neck exam: Present: normal inspection, full ROM. Absent: tenderness, meningismus, lymphadenopathy, thyromegaly - Respiratory Respiratory exam: Present: normal lung sounds bilaterally. Absent: respiratory distress - Cardiovascular Cardiovascular Exam: Present: regular rate, normal rhythm. Absent: systolic murmur, diastolic murmur, rubs, gallop - GI/Abdominal GI/Abdominal exam: Present: soft, normal bowel sounds. Absent: distended, tenderness, guarding, rebound - Rectal Rectal exam: Present: deferred - Extremities Exam Extremities exam: Present: full ROM, other (hand abrasion and soft tissue swelling left hand dorsum fourth fifth metacarpal carpal area) - Back Exam Back exam: Present: normal inspection. Absent: CVA tenderness (R), CVA tenderness (L), muscle spasm, paraspinal tenderness, vertebral tenderness - Neurological Exam Neurological exam: Present: alert, oriented X3, CN II-XII intact, normal gait. Absent: motor sensory deficit - Psychiatric Psychiatric exam: Present: normal affect, anxious - Skin Skin exam: Present: warm, dry, intact, normal color. Absent: rash ED Course Vital Signs 12/21/18 12/21/18 12/21/18 05:01 05:31 07:18 Temperature 98.7 F Pulse Rate 86 91 H 82 Respiratory 16 16 Rate Blood Pressure 153/81 142/80 [Left] O2 Sat by Pulse 100 100 Oximetry 12/21/18 10:18 Temperature 98.6 F Pulse Rate 78 Respiratory 14 Rate Blood Pressure 133/70 [Left] O2 Sat by Pulse 100 Oximetry - Reevaluation(s) Reevaluation #1: Patient was seen by mental health counselor for possible placement in a voluntary detox program. By the time the counselor evaluated him he's had with Leonidas's request for detox. He has adequate mental capacity to refuse. Thus he will be discharged. 12/21/18 11:21 ED Medical Decision Making - Lab Data Result diagrams: 12/21/18 05:42 12/21/18 05:42 Laboratory Results - last 24 hr 12/21/18 12/21/18 12/21/18 05:42 05:42 05:42 WBC 6.8 RBC 4.76 Hgb 13.6 Hct 41.3 MCV 87 MCH 29 MCHC 33 RDW 18.0 H Plt Count 136 L Lymph % (Auto) 6.3 L Cotton % (Auto) 9.3 H Eos % (Auto) 0.2 Baso % (Auto) 0.6 Lymph # 0.4 L Cotton # 0.6 Eos # 0.0 Baso # 0.0 Seg Neutrophils % 83.6 H Seg Neutrophils # 5.7 Sodium 136 L Potassium 3.8 Chloride 96.3 L Carbon Dioxide 25 Anion Gap 19 BUN 12 Creatinine 0.9 Estimated GFR > 60 BUN/Creatinine Ratio 13 Glucose 101 H Calcium 9.5 Magnesium 2.10 Total Bilirubin 1.00 AST 56 H ALT 36 Alkaline Phosphatase 76 Total Protein 7.5 Albumin 4.5 Albumin/Globulin Ratio 1.5 Plasma/Serum Alcohol 09/25/19 05:42 WBC RBC Hgb Hct MCV MCH MCHC RDW Plt Count Lymph % (Auto) Cotton % (Auto) Eos % (Auto) Baso % (Auto) Lymph # Cotton # Eos # Baso # Seg Neutrophils % Seg Neutrophils # Sodium Potassium Chloride Carbon Dioxide Anion Gap BUN Creatinine Estimated GFR BUN/Creatinine Ratio Glucose Calcium Magnesium Total Bilirubin AST ALT Alkaline Phosphatase Total Protein Albumin Albumin/Globulin Ratio Plasma/Serum Alcohol < 0.01 - EKG Data -: EKG Interpreted by Me EKG shows normal: sinus rhythm, axis, intervals, QRS complexes, ST-T waves Rate: normal - EKG Data Interpretation: no acute changes Critical care attestation.: If time is entered above; I have spent that time in minutes in the direct care of this critically ill patient, excluding procedure time. ED Disposition Clinical Impression: Alcohol withdrawal Qualifiers: Complication of substance-induced condition: uncomplicated Qualified Code(s): F10.230 - Alcohol dependence with withdrawal, uncomplicated Minor head injury Qualifiers: Encounter type: initial encounter Qualified Code(s): S09.90XA - Unspecified injury of head, initial encounter Contusion of hand, left Qualifiers: Encounter type: initial encounter Qualified Code(s): S60.222A - Contusion of left hand, initial encounter Disposition: DC-01 TO HOME OR SELFCARE Is pt being admited?: No Does the pt Need Aspirin: No Condition: Stable Instructions: Alcohol Withdrawal (ED), Minor Head Injury (ED), Contusion in Adults (ED) Additional Instructions: Further care and follow-up cleaning [facility] and the [facility] is recommended. Return as you wish particularly if you have any acute change or problems. Referrals: PRIMARY CAREMD [Primary Care Provider] - 3-5 Days [facility] [Provider Group] - 3-5 Days [facility] [Outside] - 3-5 Days Time of Disposition: 11:24
[2018-12-21 08:21] LABS: Bacteria,Urine 4+ /HPF (Negative); Bilirubin,Urine NEG (Negative); Blood,Urine MOD (Negative); Color,Urine Yellow (Yellow); Mucus,Urine 3+ /HPF; Sperm,Urine 3+ /HPF (NP); Urobilinogen,Urine < 2.0 mg/dL (<2.0)
[2018-12-21 08:22] LABS: Amphetamine Screen,Urine PRESUMPTIVE NEGATIVE; Benzodiazepines Screen,Urine PRESUMPTIVE NEGATIVE; Cannabinoid Screen,Urine PRESUMPTIVE NEGATIVE; Cocaine Screen,Urine PRESUMPTIVE NEGATIVE; Methadone Screen,Urine PRESUMPTIVE NEGATIVE; Opiate Screen,Urine PRESUMPTIVE NEGATIVE
[2018-12-21 12:10] VITALS: BP 120/76
== END 2018-12-21 12:10 | disposition home or self-care (01) ==
LOC: ED 04:55
DX: S60.222A Contusion of left hand, initial encounter (principal); S09.90XA Unspecified injury of head, initial encounter; F10.239 Alcohol dependence with withdrawal, unspecified; I10 Essential (primary) hypertension; Z86.73 Personal history of transient ischemic attack (TIA), and cerebral infarction without residual deficits; F31.9 Bipolar disorder, unspecified; Z79.899 Other long term (current) drug therapy; W01.0XXA Fall on same level from slipping, tripping and stumbling without subsequent striking against object, initial encounter; Y93.89 Activity, other specified; Y92.89 Other specified places as the place of occurrence of the external cause; Y99.8 Other external cause status
CPT/HCPCS: 36415; 70450; 72125; 73120; 80053; 80307; 81001; 83735; 85025; 90471; 90715; 93005; 93010; 96365; 96366; 99285; J3411; J7030; 80320; G0480

== ENCOUNTER 2019-03-20 21:04 | Emergency (ER) | payer MEDICAID ==
[2019-03-20] MEDS ORDERED: LORazepam 2 MG/ML VIAL ONE (21:22)
[2019-03-20] MEDS ORDERED: LORazepam 2 MG/ML VIAL IM ONE ×2 (21:48→23:32)
--- NOTE | 2019-03-20 22:14 | Emergency Department Report ---
ED Alcohol HPI - General Chief Complaint: Alcohol Stated Complaint: MH Time Seen by Provider: 03/20/19 21:52 Source: patient Mode of arrival: Ambulatory Limitations: No Limitations - History of Present Illness Initial Comments: Patient is 58 years old male with history of bipolar disorder and chronic alcoholism. Patient presented to the ER lobby, with a strong smell of alcohol. Patient is inconsolable at time of triage stumbling in the lobby and crying uncontrollably. Patient admitted that he has been drinking alcohol just prior to coming to the ER. He stated that he drank 4 beers. Patient denied any suicidal or homicidal ideation. MD Complaint: alcohol intoxication Last Drink: just [employer] Chronic Alcohol Use: Yes Previous Visits for Alcohol Intoxication?: Yes Recent Trauma: No Associated Symptoms: denies other symptoms - Related Data Previous Rx's Medication Instructions Recorded Last Taken Type HYDROcodone/APAP 10-325 [[place] 1 each PO Q6HR PRN #14 tablet 10/09/13 Unknown Rx 10-325 mg TAB] Folic Acid [Folvite] 1 mg PO QDAY #30 tablet 12/12/18 Unknown Rx Thiamine [Vitamin B-1] 100 mg PO QDAY #30 tablet 12/12/18 Unknown Rx chlordiazePOXIDE [Librium] 25 mg PO Q8H #20 capsule 12/12/18 Unknown Rx Propranolol HCl 20 mg PO DAILY #20 tablet 03/22/19 Unknown Rx Allergies Allergy/AdvReac Type Severity Reaction Status Date / Time No Known Allergies Allergy Unverified 10/09/13 12:01 ED Review of Systems ROS: Stated complaint: MH Other details as noted in HPI Comment: All other systems reviewed and negative Constitutional: denies: chills, fever Respiratory: denies: cough, shortness of breath Gastrointestinal: denies: abdominal pain, nausea, vomiting Musculoskeletal: denies: back pain ED Past Medical Hx - Past Medical History Previous Medical History?: Yes Hx Hypertension: Yes Hx CVA: Yes Hx Congestive Heart Failure: No Hx Diabetes: No Hx Psychiatric Treatment: Yes (bipolar) Hx Asthma: No Hx COPD: No Hx HIV: No Additional medical history: hx head injuries, hx mrsa - Surgical History Past Surgical History?: Yes Additional Surgical History: acl surgery - Social History Smoking Status: Never Smoker - Medications Home Medications: Home Medications Medication Instructions Recorded Confirmed Last Taken Type HYDROcodone/APAP 10-325 [[place] 1 each PO Q6HR PRN #14 tablet 10/09/13 Unknown Rx 10-325 mg TAB] Folic Acid [Folvite] 1 mg PO QDAY #30 tablet 12/12/18 Unknown Rx Thiamine [Vitamin B-1] 100 mg PO QDAY #30 tablet 12/12/18 Unknown Rx chlordiazePOXIDE [Librium] 25 mg PO Q8H #20 capsule 12/12/18 Unknown Rx Propranolol HCl 20 mg PO DAILY #20 tablet 03/22/19 Unknown Rx ED Physical Exam - General Limitations: No Limitations General appearance: alert, appears intoxicated - Head Head exam: Present: atraumatic, normocephalic, normal inspection - Eye Eye exam: Present: normal appearance - ENT ENT exam: Present: normal exam, normal orophraynx, mucous membranes moist - Neck Neck exam: Present: normal inspection, full ROM. Absent: tenderness, meningismus - Respiratory Respiratory exam: Present: normal lung sounds bilaterally - Cardiovascular Cardiovascular Exam: Present: regular rate, normal rhythm, normal heart sounds - GI/Abdominal GI/Abdominal exam: Present: soft, normal bowel sounds. Absent: distended, tenderness, guarding, rebound, rigid, organomegaly, mass, bruit, pulsatile mass, hernia - Extremities Exam Extremities exam: Present: normal inspection, full ROM, normal capillary refill. Absent: tenderness, pedal edema, calf tenderness - Back Exam Back exam: Present: normal inspection, full ROM. Absent: CVA tenderness (R), CVA tenderness (L), muscle spasm, paraspinal tenderness, vertebral tenderness - Neurological Exam Neurological exam: Present: alert, oriented X3, CN II-XII intact - Psychiatric Psychiatric exam: Present: anxious. Absent: homicidal ideation, suicidal ideation - Skin Skin exam: Present: warm, intact, normal color ED Course Vital Signs 03/20/19 03/20/19 03/20/19 21:05 21:40 23:05 Temperature 99.0 F Pulse Rate 84 Respiratory 16 12 Rate Blood Pressure Blood Pressure 117/55 [Right] O2 Sat by Pulse 95 98 94 Oximetry 03/20/19 03/20/19 03/20/19 23:22 23:30 23:46 Temperature Pulse Rate 84 84 Respiratory 20 22 Rate Blood Pressure 125/71 129/73 129/73 Blood Pressure [Right] O2 Sat by Pulse 94 93 93 Oximetry 1203/21/19 03/21/19 00:00 00:16 00:30 Temperature Pulse Rate 87 83 89 Respiratory 21 20 18 Rate Blood Pressure 136/76 129/73 131/80 Blood Pressure [Right] O2 Sat by Pulse 94 93 92 Oximetry 03/21/19 03/21/19 03/21/19 00:46 01:00 01:16 Temperature Pulse Rate 82 81 84 Respiratory 20 19 15 Rate Blood Pressure 131/80 126/67 126/67 Blood Pressure [Right] O2 Sat by Pulse 93 90 94 Oximetry 03/21/19 03/21/19 03/21/19 01:30 01:46 02:00 Temperature Pulse Rate 75 77 Respiratory 22 17 18 Rate Blood Pressure 126/67 97/53 97/53 Blood Pressure [Right] O2 Sat by Pulse 95 91 92 Oximetry 03/21/19 03/21/19 03/21/19 02:16 12:54 12:57 Temperature 98.5 F Pulse Rate 80 Respiratory 15 18 Rate Blood Pressure 110/85 123/60 Blood Pressure 123/60 [Right] O2 Sat by Pulse 94 90 95 Oximetry 03/21/19 03/21/19 03/21/19 13:16 15:00 16:36 Temperature Pulse Rate 88 Respiratory 16 Rate Blood Pressure 121/63 119/65 Blood Pressure 135/88 [Right] O2 Sat by Pulse 96 94 98 Oximetry ED Medical Decision Making - Lab Data Result diagrams: 03/20/19 22:00 03/21/19 09:45 - Radiology Data Radiology results: report reviewed - Medical Decision Making Patient is 58 years old male with history of bipolar disorder and chronic alcoholism. Patient presented to the ER lobby, with a strong smell of alcohol. Patient is inconsolable at time of triage stumbling in the lobby and crying uncontrollably. Patient admitted that he has been drinking alcohol just prior to coming to the ER. He stated that he drank 4 beers. Patient denied any suicidal or homicidal ideation. Patient remained stable. Patient however went to the bathroom and fell and he denies head and face. CT head and facial bones is negative for acute finding. Patient will be observed in the emergency room until sober. Critical care attestation.: If time is entered above; I have spent that time in minutes in the direct care of this critically ill patient, excluding procedure time. ED Disposition Clinical Impression: Alcohol intoxication, Head injury Disposition: DC-01 TO HOME OR SELFCARE Is pt being admited?: No Condition: Stable Instructions: Alcohol Intoxication (ED) Referrals: PRIMARY CARE, [Primary Care Provider] - 3-5 Days
[2019-03-20 22:16] LABS: Basophils # (Auto) 0.1 K/mm3 (0.0-0.1); Basophils % (Auto) 0.8 % (0.0-1.8); Eosinophils # (Auto) 0.1 K/mm3 (0.0-0.4); Eosinophils % (Auto) 0.9 % (0.0-4.3); Hematocrit 36.7 % (35.5-45.6); Hemoglobin 12.7 gm/dl (11.8-15.2); Lymphocytes # (Auto) 1.5 K/mm3 (1.2-5.4); Lymphocytes % (Auto) 21.1 % (13.4-35.0); Mean Corpuscular HGB Conc 35 % (32-34); Mean Corpuscular Volume 88 fl (84-94); Monocytes # (Auto) 0.9 K/mm3 (0.0-0.8); Monocytes % (Auto) 13.1 % (0.0-7.3); Platelet Count 229 K/mm3 (140-440); Red Blood Count 4.17 M/mm3 (3.65-5.03); Red Cell Distribution Width 13.9 % (13.2-15.2)
[2019-03-20 22:34] LABS: BUN/Creatinine Ratio 11; Blood Urea Nitrogen 8 mg/dL (9-20); Calcium 8.9 mg/dL (8.4-10.2); Hemolysis Index 12
--- NOTE | 2019-03-20 23:46 | Cat Scan Report ---
CT HEAD WITHOUT CONTRAST HISTORY: MAIN: AMS, FALL COMPARISON: None TECHNIQUE: CT imaging of the head was performed in the axial, sagittal, and coronal projections and bone algori thm in axial projection in the soft tissue algorithm. All CT scans at this location are performed using CT dose reduction for ALARA by means of automated e xposure control. CONTRAST: None. FINDINGS: Cerebral and Cerebellar Hemispheres: No evidence of mass or mass effect. No midline shift. No acute hemorrhage. No acute cortical infarction. No extra-axial fluid collection. Ventricles: Normal in size and configuration for age. Osseous Structures: No significant abnormality. Visualized Paranasal Sinuses: Mucosal thickening left maxillary sinus Additional Findings: None IMPRESSION: 1. No acute intracranial abnormality. NOTE: Acute infarct may not be visible by noncontrast CT. Signer Name: Meet Machado MD Signed: 03/20/2019 11:42 PM Workstation Name: [id number]
--- NOTE | 2019-03-20 23:50 | Cat Scan Report ---
CLINICAL DATA: MAIN: AMS, FALL, FACIAL TRAUMA TECHNICAL DATA: CT imaging of the facial bones was performed with images presented in the coronal, axial, and sagitta l imaging planes. All CT scans at this location are performed using CT dose reduction for ALARA by means of automated exposure control. FINDINGS: The facial bones are intact without evidence of fracture. Mucosal thickening is present involving the left maxillary sinus and left ethmoid air cells with occlusion of the left ostiomeatal complex. Smal l retention cyst is present right maxillary sinus. The temporomandibular joints and mandible are unr emarkable to the extent of visualization allowed by this technique. The teeth appear grossly unremar kable. The orbits are unremarkable with globes being intact. Extraocular muscles, optic nerves, and retroorbital fat are normal. IMPRESSION: 1. No acute traumatic abnormality identified. 2. Inflammatory changes paranasal sinuses Signer Name: Meet Machado MD Signed: 03/20/2019 11:46 PM Workstation Name: [id number]
[2019-03-21] MEDS ORDERED: AMMONIA INHALANT IH ONE (02:25)
[2019-03-21] MEDS ORDERED: POTASSIUM CHLORIDE ER 20 MEQ TAB PO ONE (09:38)
[2019-03-21] MEDS ORDERED: THIAMINE 100 MG, FOLIC ACID 1 MG, MULTIPLE VITAMIN INJ, ADULT 10 ML in SODIUM CHLORIDE ... IV ONE (09:38)
--- NOTE | 2019-03-21 10:22 | XRay Report ---
CHEST 1 VIEW INDICATION: Difficulty in breathing. COMPARISON: 12/11/2018 FINDINGS: Support devices: None. Heart: Within normal limits. Lungs/Pleura: No acute air space or interstitial disease. Additional findings: None. IMPRESSION: No acute findings. Signer Name: Torey Ayala Jr, MD Signed: 03/21/2019 10:17 AM Workstation Name: [id number]
[2019-03-21 10:34] LABS: Creatine Kinase MB 5.1 ng/mL (0.0-4.0); INR 0.9 (0.87-1.13)
[2019-03-21 10:35] LABS: BUN/Creatinine Ratio 8; Blood Urea Nitrogen 5 mg/dL (9-20); Calcium 8.9 mg/dL (8.4-10.2); Hemolysis Index 9; Partial Thromboplastin Time 24.9 Sec. (24.2-36.6)
[2019-03-21 10:38] LABS: Alanine Aminotransferase 30 units/L (7-56); Albumin 4.2 g/dL (3.9-5)
[2019-03-21 10:39] LABS: Bilirubin,Direct < 0.2 mg/dL (0-0.2)
[2019-03-21 12:11] LABS: Bilirubin,Urine NEG (Negative); Blood,Urine NEG (Negative); Color,Urine Yellow (Yellow); Mucus,Urine FEW /HPF; Protein,Urine <15 mg/dL mg/dL (Negative); Urobilinogen,Urine < 2.0 mg/dL (<2.0); WBC,Urine < 1.0 /HPF (0.0-6.0)
[2019-03-21 12:18] LABS: Amphetamine Screen,Urine PRESUMPTIVE NEGATIVE; Cannabinoid Screen,Urine PRESUMPTIVE NEGATIVE; Cocaine Screen,Urine PRESUMPTIVE NEGATIVE; Methadone Screen,Urine PRESUMPTIVE NEGATIVE; Opiate Screen,Urine PRESUMPTIVE NEGATIVE
[2019-03-21 13:07] LABS: Benzodiazepines Screen,Urine PRESUMPTIVE POSITIVE
--- NOTE | 2019-03-21 13:22 | Cat Scan Report ---
CT CERVICAL SPINE WITHOUT CONTRAST INDICATION / CLINICAL INFORMATION: Trauma. Neck injury. Neck pain. TECHNIQUE: Axial CT images were obtained through the cervical spine. Sagittal and coronal reformatted images wer e produced. All CT scans at this location are performed using CT dose reduction for ALARA by means of automated exposure control. COMPARISON: CT cervical spine 12/21/2018 FINDINGS: TRAUMA: There is no indication of fracture or traumatic subluxation. ALIGNMENT: Normal alignment is maintained throughout the cervical region. VERTEBRAE: Widespread degenerative changes noted with prominent anterior osteophyte formation at mult iple levels. DISC SPACES: Loss of disc height is prominent finding at the C4-5, C5-6 and C6-7 levels were advanced disc desiccation is suspected. INDIVIDUAL LEVEL ANALYSIS: C2-3: Bilateral facet arthropathy is noted. Central spinal canal and neuroforamina are adequately mary ntained. C3-4: Loss of disc height is noted. Anterior osteophyte formation is noted. Left worse than right fac et and uncovertebral degenerative changes contribute to severe left-sided and moderate right-sided ne uroforaminal stenosis at the C4 nerve root level. Central spinal canal appears to be adequately maint ained. C4-5: A posterior bone bar is present along the dorsal aspect of the C4 vertebral body. This flattens the thecal sac. Prominent anterior osteophyte formation is noted. Facet and uncovertebral arthritic changes contribute to severe right-sided and moderate left-sided neuroforaminal stenosis at the C5 ne rve root level. C5-6: Complete loss of disc height is noted. There may be degenerative fusion across this interspace. Anterior and posterior osteophyte formation are noted. Posterior osteophyte results in mild narrowin g of the central spinal canal. Facet and uncovertebral arthritic changes contribute to moderate bilat eral foraminal stenosis. C6-7: Near-complete loss of disc height is noted. Anterior osteophyte formation is present. Mild post erior osteophyte is also observed. Facet and uncovertebral arthropathy contribute to moderate bilater al foraminal stenosis at the C7 nerve root level. C7-T1: No abnormality. CRANIOCERVICAL JUNCTION:No significant abnormality. SPINAL CANAL: No indication of central canal stenosis. PARASPINAL SOFT TISSUES: No significant abnormality. LUNG APICES: Incidental note is made of an azygos fissure in the right lung apex. IMPRESSION: 1. No indication of fracture or traumatic subluxation. 2. Widespread cervical spondylosis with multifocal neuroforaminal narrowing as described level by lev el above. 3. Similar findings were present on previous study. Signer Name: Anjum Vela MD Signed: 03/21/2019 1:18 PM Workstation Name: [id number]
[2019-03-21 16:36] VITALS: BP 135/88
== END 2019-03-21 18:01 | disposition home or self-care (01) ==
LOC: EEVIPCON 21:04 → ED 21:04
DX: S09.90XA Unspecified injury of head, initial encounter (principal); F10.129 Alcohol abuse with intoxication, unspecified; I10 Essential (primary) hypertension; F31.9 Bipolar disorder, unspecified; Z98.890 Other specified postprocedural states; Z79.899 Other long term (current) drug therapy; Z86.73 Personal history of transient ischemic attack (TIA), and cerebral infarction without residual deficits; X58.XXXA Exposure to other specified factors, initial encounter; Y93.89 Activity, other specified; Y92.89 Other specified places as the place of occurrence of the external cause; Y99.8 Other external cause status
CPT/HCPCS: 36415; 70450; 70486; 71045; 72125; 80048; 80076; 80307; 81001; 82140; 82550; 82553; 83735; 83880; 85025; 85610; 85730; 96365; 96366; 96372; 99285; J2060; J3411; J7030; 80320; G0480

== ENCOUNTER 2019-03-22 14:13 | Emergency (ER) | payer MEDICAID | END 2019-03-22 18:29 | disposition home or self-care (01) | LOC: ED 14:13 | CPT/HCPCS: 99282 ==